=== PATIENT | female | born 1930 | race Caucasian/White ===

== ENCOUNTER 2017-04-07 10:26 | Emergency (ER) | payer OTHER ==
[~2017-04-07] VITALS: Ht 147.3 cm; Wt 57.0 kg
[~2017-04-07 10:26] MED LIST: ACET-1256 PO; AMLO2.5T PO; CHOL1000 PO; CYCL0.052 OP; CZR50 PO; LBR10 PO; LEVO75TA5 PO; LNX125 PO; LSX20 PO; MECL1TAB40 PO; METO50TA16 PO; POTA20TA13 PO; RANI150T2 PO; ROSU5TAB PO; WARF-280 PO
[2017-04-07 10:33] VITALS: TEMP 36.7
[2017-04-07 11:23] VITALS: O2SAT 95; Ht 147.3 cm; Wt 57.0 kg
[2017-04-07] MEDS ORDERED: CMD/25 PO (11:27)
[2017-04-07 11:31] LABS: BASO % 0.5 %; BASO ABS # 0.03 K/uL (0-0.2); COMPLETE YES; EOS % 2.2 %; HEMATOCRIT 42.6 % (37-47); IG% 0.2 %; LYMPH % 20.2 %; LYMPH ABS # 1.22 K/uL (1.2-3.4); MEAN CELL VOLUME 82.4 fL (80-100); MEAN CORPUSCULAR HEMOGLOBIN 25.5 pg (25-34); MEAN PLATELET VOLUME 10.1 fL (7.4-10.4); MONO % 8.6 %; NEUT % 68.3 %; PLATELET COUNT 184 K/uL (130-400); RED BLOOD COUNT 5.17 M/uL (4.2-5.4); WHITE BLOOD COUNT 6.03 K/uL (4.8-10.8)
[2017-04-07 11:52] LABS: BUN/CREATININE RATIO 12.8 (10-20); CALCIUM 9.3 mg/dl (8.5-10.1); CREATININE 0.97 mg/dl (0.60-1.20); MAGNESIUM 2.1 mg/dl (1.8-2.4); POTASSIUM 3.9 mmol/L (3.5-5.1)
--- NOTE | 2017-04-07 11:59 | DIAGNOSTIC IMAGING REPORT ---
CT HEAD WITHOUT CONTRAST (CT) CLINICAL HISTORY: dizziness, off balance COMPARISON STUDY: 03/26/2016 TECHNIQUE: Axial CT of the brain is performed from the vertex to the skull base. IV contrast was not administered for this examination. CT DOSE: 614.27 mGy.cm FINDINGS: No intra or extra-axial mass lesions are visualized. There is no CT evidence of acute cortical infarction. There is no evidence of midline shift. There is no acute hemorrhage. No calvarial fractures are visualized. There are patchy white matter hypodensities likely on a small vessel basis. There is no evidence of pathologic ventricular dilatation. There is no evidence of acute sinusitis IMPRESSION: No acute intracranial findings Electronically signed by: José Miguel Diggs M.D. 04/07/2017 11:57 AM Dictated Date/Time: 04/07/2017 11:56 AM
[2017-04-07 12:04] LABS: THYROID STIMULATING HORMONE 2.17 uIu/ml (0.300-4.500)
[2017-04-07 12:47] LABS: INR 1.6 (0.9-1.1); PARTIAL THROMBOPLASTIN RATIO 1.4; PROTHROMBIN TIME (PATIENT) 17.2 SECONDS (9.0-12.0)
[2017-04-07 12:51] LABS: URINE APPEARANCE CLEAR (CLEAR); URINE BILIRUBIN NEG (NEG); URINE COLOR YELLOW; URINE NITRITE NEG (NEG); URINE SPECIFIC GRAVITY 1.006 (1.000-1.030); UROBILINOGEN NEG (NEG)
[2017-04-07 13:12] LABS: MANUAL MICROSCOPIC REQUIRED? NO; REVIEW REQ? NO
[2017-04-07 16:12] VITALS: BP 162/77; PULSE 91; O2SAT 96
--- NOTE | 2017-04-07 16:19 | Pharmacy Progress Note ---
ED Pharmacist Progress Note Date of Service: April 07, 2017. I spent 20 minutes with the patient and her daughter reviewing her medications as follows. * Metoprolol tartrate 50 mg po BID decreased to 25 mg po BID this visit * Patient had multiple 50 mg tabs from previous prescription. Per Dr. Bowens's request, I cut each of the 50 mg tabs along the scored line with a pill cutter to form many 25 mg half tablets. * Spoke with the patient and her daughter. They requested that I modify the instructions on the bottle from "take 1 tab" to "take 1/2 tab", which I did. I also confirmed that they knew that the tablets were already cut in 1/2 for them and that they do not need to be cut in 1/2 again. Patient and daughter acknowledged understanding. * I confirmed with patient that she had not taken her metoprolol yet today. I confirmed with Dr. Bowens that patient was to take 25 mg po now then 25 mg po again HS. I counseled the patient as such, who acknowledged understanding. * Patient with multiple other chronic medications. * Patient and daughter requested that I write the indication for each medication on the prescription bottle top and also indicate what time of day each medication is taken (AM, PM, or AM+PM). * Patient was aware that many of her medications are only to be taken 3x/wk on MWF * Patient noted that she takes warfarin as recommended by her Coumadin clinic, which is different than what her bottle says. She notes that she takes one 2.5 mg tab po daily, and does not take an additional 2.5 mg (for a total dose of 5 mg) 3x/wk. I spoke w the [employer] tech (Maida) who completed her MedRec earlier today. She noted she will update as such. * Patient seemed to know her medication names, indications, dosages, and frequencies well.
--- NOTE | 2017-04-07 18:46 | EMERGENCY ROOM VISIT NOTE ---
History Report prepared by Flako: Kofi Morrison Under the Supervision of: Dr. Peter Bowens M.D. First contact with patient: 10:47 Chief Complaint: DIZZY Stated Complaint: DIZZINESS - SORE LEFT LEG Nursing Triage Summary: Pt presents with c/o dizziness. Saw PCP on Tue and was told the dizziness may be a result of Lopressor being too high, but no med adjustment was done. Pt does report hx of vertigo. Denies n/v. Pt states has a bump on left leg that is painful and hot. History of Present Illness The patient is an 86 year old female who presents to the Emergency Room with complaints of persistent dizziness that the patient began to experience two weeks ago. The patient states that her dizziness is worsened with walking, and describes it as "feeling off balance." She denies any recent falls secondary to her dizziness. The patient visited her PCP Tuesday, three days ago, for similar dizziness. He thought that her dosage of Lopressor was too strong and needed to be reduced. There still has not been a decision made to lower this dosage of Lopressor. She also had a high INR level and was told to skip a dosage of her blood thinning medication. The patient also complains of some increased lower extremity edema. The patient has a history of pace maker placement. The patient did note a little bump on her left leg that was uncomfortable but then it went away. She currently denies LOC, headache, fevers, chills, diaphoresis, visual changes, neck pain, chest pain, breathing difficulties, nausea, vomiting , abdominal pain, back pain, melena, hematochezia, urinary symptoms, numbness, weakness, lymphadenopathy, rash, or other complaints. Source of History: patient, family Onset: Two weeks ago. Position: head Quality: other (Dizziness) Timing: worsening Modifying Factors (Worsening): other (Walking) Associated Symptoms: No LOC Review of Systems See HPI for pertinent positives and negatives. A total of ten systems were reviewed and were otherwise negative. 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 Social History Smoking Status: Never Smoker Alcohol Use: none Marital Status: Housing Status: lives with significant other Occupation Status: retired Current/Historical Medications Scheduled Amlodipine (Norvasc), 2.5 MG PO DAILY Chlordiazepoxide (Chlordiazepoxide HCl), 10 MG PO BID Cholecalciferol (Vitamin D3), 1,000 INTER.UNIT PO DAILY Digoxin (Digoxin), 0.125 MG PO 3XWK Furosemide (Furosemide), 20 MG PO 3XWK Levothyroxine Sodium (Levothyroxine Sodium), 75 MCG PO QAM Losartan Potassium (Losartan Potassium), 50 MG PO BID Metoprolol Tartrate (Lopressor) (Lopressor), 50 MG PO BID Potassium Chloride Microencaps (Potassium Chloride Er), 20 MEQ PO UD Ranitidine HCl (Ranitidine HCl), 150 MG PO BID Rosuvastatin Calcium (Crestor), 5 MG PO HS Warfarin Sodium (Warfarin Sodium), 2.5 MG PO DAILY Scheduled PRN Acetaminophen (Tylenol), 500 MG PO HS PRN for Pain Cyclosporine (Ophth) (Restasis), 1 DROP OP BID PRN for Dry Eye(s) Meclizine Hcl (Meclizine Hcl), 12.5 MG PO TID PRN for Dizziness or Vertigo Allergies Coded Allergies: Adhesives (Unverified Allergy, Unknown, itchy;red skin, 03/25/16) Penicillins (Verified Allergy, Unknown, RASH, 03/25/16) Sulfa Antibiotics (Unverified Allergy, Unknown, rash, 03/25/16) Physical Exam Vital Signs Date Time Temp Pulse Resp B/P Pulse Ox O2 Delivery O2 Flow Rate FiO2 04/07/17 16:12 91 20 162/77 96 Room Air 04/07/17 14:52 96 20 154/69 96 Room Air 04/07/17 13:50 91 20 168/98 96 Room Air 04/07/17 13:25 90 04/07/17 11:23 95 Room Air 04/07/17 11:21 87 04/07/17 11:15 114 20 194/88 97 Room Air 100 187/94 106 179/105 04/07/17 10:33 36.7 94 18 166/74 97 Room Air Physical Exam GENERAL: Awake, alert, well appearing, no distress HENT: Normocephalic, atraumatic. TM's normal. Oropharynx unremarkable. EYES: PERRL. Normal conjunctiva. Sclera non-icteric. Fundi normal. EOMI NECK: Supple. No nuchal rigidity. FROM. RESPIRATORY: CTA CARDIAC: RRR. Extremities warm and well perfused. ABDOMEN: Soft, non distended. No tenderness to palpation. No rebound or guarding. No masses. MUSCULOSKELETAL: Unremarkable. No evidence of cellulitis. Trace edema. No swelling. BACK: Back is Kyphotic. EXTREMITIES: 1+ lower extremity edema. No discoloration. Gross motor strength 5/ 5 bilaterally. NEURO: Normal sensorium. No sensory or motor deficits noted. Speech normal. Cranial nerves two through 12 intact. No pronator drift.Normal rapid alternating movements. SKIN: No rash or jaundice noted. LYMPH: No adenopathy. Medical Decision & Procedures ER Provider Diagnostic Interpretation: Radiology results as stated below per my review and radiologist interpretation: CT HEAD WITHOUT CONTRAST (CT) CLINICAL HISTORY: dizziness, off balance COMPARISON STUDY: 03/26/2016 TECHNIQUE: Axial CT of the brain is performed from the vertex to the skull base. IV contrast was not administered for this examination. CT DOSE: 614.27 mGy.cm FINDINGS: No intra or extra-axial mass lesions are visualized. There is no CT evidence of acute cortical infarction. There is no evidence of midline shift. There is no acute hemorrhage. No calvarial fractures are visualized. There are patchy white matter hypodensities likely on a small vessel basis. There is no evidence of pathologic ventricular dilatation. There is no evidence of acute sinusitis IMPRESSION: No acute intracranial findings Electronically signed by: José Miguel Diggs M.D. 04/07/2017 11:57 AM Dictated Date/Time: 04/07/2017 11:56 AM Laboratory Results 04/07/17 11:05 Red Blood Count 5.17, Mean Corpuscular Volume 82.4, Mean Corpuscular Hemoglobin 25.5, Mean Corpuscular Hemoglobin Concent 31.0, Mean Platelet Volume 10.1, Neutrophils (%) (Auto) 68.3, Lymphocytes (%) (Auto) 20.2, Monocytes (%) (Auto) 8.6, Eosinophils (%) (Auto) 2.2, Basophils (%) (Auto) 0.5, Neutrophils # (Auto) 4.12, Lymphocytes # (Auto) 1.22, Monocytes # (Auto) 0.52, Eosinophils # (Auto) 0.13, Basophils # (Auto) 0.03 04/07/17 11:05 Test 04/07/17 11:05 04/07/17 12:00 04/07/17 12:05 White Blood Count 6.03 K/uL (4.8-10.8) Red Blood Count 5.17 M/uL (4.2-5.4) Hemoglobin 13.2 g/dL (12.0-16.0) Hematocrit 42.6 % (37-47) Mean Corpuscular Volume 82.4 fL (80-100) Mean Corpuscular Hemoglobin 25.5 pg (25-34) Mean Corpuscular Hemoglobin Concent 31.0 g/dl (32-36) Platelet Count 184 K/uL (130-400) Mean Platelet Volume 10.1 fL (7.4-10.4) Neutrophils (%) (Auto) 68.3 % Lymphocytes (%) (Auto) 20.2 % Monocytes (%) (Auto) 8.6 % Eosinophils (%) (Auto) 2.2 % Basophils (%) (Auto) 0.5 % Neutrophils # (Auto) 4.12 K/uL (1.4-6.5) Lymphocytes # (Auto) 1.22 K/uL (1.2-3.4) Monocytes # (Auto) 0.52 K/uL (0.11-0.59) Eosinophils # (Auto) 0.13 K/uL (0-0.5) Basophils # (Auto) 0.03 K/uL (0-0.2) RDW Standard Deviation 45.3 fL (36.4-46.3) RDW Coefficient of Variation 15.0 % (11.5-14.5) Immature Granulocyte % (Auto) 0.2 % Immature Granulocyte # (Auto) 0.01 K/uL (0.00-0.02) Anion Gap 6.0 mmol/L (3-11) Est Creatinine Clear Calc Drug Dose 30.5 ml/min Estimated GFR () 60.9 Estimated GFR (Non- 52.5 BUN/Creatinine Ratio 12.8 (10-20) Calcium Level 9.3 mg/dl (8.5-10.1) Magnesium Level 2.1 mg/dl (1.8-2.4) Total Bilirubin 0.6 mg/dl (0.2-1) Direct Bilirubin 0.1 mg/dl (0-0.2) Aspartate Amino Transf (AST/SGOT) 23 U/L (15-37) Alanine Aminotransferase (ALT/SGPT) 24 U/L (12-78) Alkaline Phosphatase 97 U/L (45-117) Total Protein 7.4 gm/dl (6.4-8.2) Albumin 3.8 gm/dl (3.4-5.0) Lipase 133 U/L (73-393) Thyroid Stimulating Hormone (TSH) 2.170 uIu/ml (0.300-4.500) Prothrombin Time 17.2 SECONDS (9.0-12.0) Prothromb Time International Ratio 1.6 (0.9-1.1) Activated Partial Thromboplast Time 35.5 SECONDS (21.0-31.0) Partial Thromboplastin Ratio 1.4 Urine Color YELLOW Urine Appearance CLEAR (CLEAR) Urine pH 8.0 (4.5-7.5) Urine Specific [place] 1.006 (1.000-1.030) Urine Protein NEG (NEG) Urine Glucose (UA) NEG (NEG) Urine Ketones NEG (NEG) Urine Occult Blood NEG (NEG) Urine Nitrite NEG (NEG) Urine Bilirubin NEG (NEG) Urine Urobilinogen NEG (NEG) Urine Leukocyte Esterase NEG (NEG) Laboratory results reviewed by me ECG Indication: other (Dizziness/Abnormal Labs) Rate (beats per minute): 82 Rhythm: atrial fibrillation Findings: nonspecific-ST abn, no acute ischemic change Comparison ECG Date: 03/27/16 Change: Paced rhythm is no longer present, T-wave inversions in the inferior are no longer present. ED Course 1052: The patient was evaluated in room C4. A complete history and physical exam was performed. 1119: The patient's orthostatics were negative at this time. 1342: I reassessed the patient at this time, she is doing well. 1524: I checked on the patient at this time. I discussed cutting her Metoprolol in half. This will mean she is taking 25 mg of Metoprolol twice per day. The pharmacist is reviewing these changes with her now. The patient is in agreement and will be discharged home. Medical Decision Triage Nursing notes reviewed. The patient's presentation and history were concerning for dizziness. Etiologies such as orthostasis, medication related, benign positional vertigo, tumor, infection, hypoglycemia, electrolyte abnormalities, cardiac sources, intracerebral event, toxicologic, neurologic, as well as others were entertained. The patient was evaluated. Clinically she looked well. Orthostatic testing was done and was actually negative. The patient was hypertensive. She was borderline tachycardic. The patient had an unremarkable CBC. Her INR was 1.6. Chemistry panel, magnesium, LFTs, lipase, and TSH were negative. Head CT was negative. The patient was reassessed and was doing relatively well. On further history she actually skipped her 50 mg dose of metoprolol this morning. This would explain why she was bradycardic earlier in the week and is no longer bradycardic at this point in time. She was ambulated and actually felt better and did not have any of the dizzy symptoms. There was some question from the PCP office to the family that she may be on too high of a dose of metoprolol. The patient was symptomatic with lower heart rate and is feeling better with an elevated heart rate. I think it is very reasonable for her to try to take half of the metoprolol dose twice daily, 25 mg twice a 50 mg. She feels very comfortable with doing this and the daughter does as well. She has a set appointment for the beginning of next week. If she worsens she will come back to the emergency department. She does have a history of vertigo and does take meclizine on a regular basis. She did not having a significant amount of room spinning with this episode. She cannot have a MRI because of her pacer. By the evaluation outlined above other emergent etiologies such as those listed in the differential, as well as others, were deemed relatively unlikely. The patient and family were informed about the findings as listed above. All questions were answered and they were pleased with the treatment. Return instructions were outlined and the patient was discharged in stable condition. The patient was referred to her PCP for follow-up first thing next week for a recheck of the current condition. The chart was completed utilizing Dragon Speech voice recognition software. Grammatical errors, random word insertions, pronoun errors, and incomplete sentences are an occasional consequence of this system due to software limitations, ambient noise, and hardware issues. Any formal questions or concerns about the content, text, or information contained within the body of this dictation should be directly addressed to the physician for clarification. Impression Primary Impression: Dizziness Scribe Attestation The scribe's documentation has been prepared under my direction and personally reviewed by me in its entirety. I confirm that the note above accurately reflects all work, treatment, procedures, and medical decision making performed by me. Departure Information Dispostion Home / Self-Care Referrals No Doctor, Assigned (PCP) Forms HOME CARE DOCUMENTATION FORM, IMPORTANT VISIT INFORMATION Patient Instructions My [facility] Additional Instructions Decrease metoprolol to 25 mg twice daily. This will be one half tablet twice daily. The medication was cut in half in the Emergency Room by the pharmacist. Continue all other medication as prescribed. Follow-up with Dr. Parr as scheduled next week. Return to the ER for increased dizziness, headache, passing out, difficulty breathing, fevers, numbness, tingling, worsening of your condition, or as needed.
== END 2017-04-07 16:13 | disposition home or self-care (01) ==
LOC: C.EDB 10:30 → C.EDC 16:13
DX: R42 Dizziness and giddiness (principal); I48.91 Unspecified atrial fibrillation; I50.9 Heart failure, unspecified; N18.3 Chronic kidney disease, stage 3 (moderate); F32.9 Major depressive disorder, single episode, unspecified; E11.9 Type 2 diabetes mellitus without complications; K21.9 Gastro-esophageal reflux disease without esophagitis; I12.9 Hypertensive chronic kidney disease with stage 1 through stage 4 chronic kidney disease, or unspecified chronic kidney disease; E03.9 Hypothyroidism, unspecified; K58.9 Irritable bowel syndrome, unspecified; Z95.0 Presence of cardiac pacemaker; Z79.01 Long term (current) use of anticoagulants; Z79.899 Other long term (current) drug therapy